=== PATIENT | female | born 1985 | race African-American/Black ===

== ENCOUNTER 2022-08-02 21:12 | Emergency (ER) | payer OTHER ==
[~2022-08-02] VITALS: Ht 167.6 cm; Wt 86.2 kg
[2022-08-02 21:24] VITALS: BP_SYST 116
[2022-08-02 22:40] VITALS: BP_SYST 116
[2022-08-02] MEDS ORDERED: CLIN-142 PO (22:45)
[2022-08-02] MEDS ORDERED: CLINDAMYCIN HCL 150 MG CAPSULE PO ONE (22:45)
[2022-08-02] MEDS ORDERED: IBUP-1970 PO (22:45)
[2022-08-02] MEDS ORDERED: IBUPROFEN 600 MG TABLET PO ONE (22:45)
== END 2022-08-02 23:12 | disposition home or self-care (01) ==
LOC: SED 21:12
DX: K08.89 Other specified disorders of teeth and supporting structures (principal); Z88.0 Allergy status to penicillin; Z79.899 Other long term (current) drug therapy
CPT/HCPCS: 99283